=== PATIENT | female | born 1980 | race Caucasian/White ===

== ENCOUNTER 2022-11-07 04:33 | Emergency (ER) | payer MEDICAID ==
[~2022-11-07] VITALS: Ht 165.1 cm; Wt 89.8 kg
[2022-11-07 04:43] VITALS: BP 133/85
--- NOTE | 2022-11-07 04:45 | NUR ---
PT BIBA BLS. TAKEN TO BED 5 Addendum: 11/07/22 at 0450 by ISAI PT BIBA ALS
--- NOTE | 2022-11-07 04:46 | NUR ---
Dr. Membreno examining patient.
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
[2022-11-07] MEDS ORDERED: LIDOCAINE 5% 1 EA PATCH TP STA (05:04)
[2022-11-07] MEDS ORDERED: CYCLOBENZAPRINE 10 MG TAB PO ONE (05:05)
[2022-11-07] MEDS ORDERED: KETOROLAC 30 MG/ML VIAL IM ONE (05:05)
--- NOTE | 2022-11-07 05:38 | NUR ---
PT RETURN FROM RADIOLOGY
[2022-11-07] MEDS ORDERED: IBUP-1842 PO (06:13)
[2022-11-07] MEDS ORDERED: CYCL-711 PO (06:13)
--- NOTE | 2022-11-07 06:26 | NUR ---
Patient discharged with v/s stable. Written and verbal after care instructions given and explained. Patient alert, oriented and verbalized understanding of instructions. All questions addressed prior to discharge. ID band removed. Patient advised to follow up with PMD. Rx Flexeril and Motrin sent to preferred pharmacy. Patient educated on indication of medication including possible reaction and side effects. Opportunity to ask questions provided and answered.
[2022-11-07 06:27] VITALS: BP 123/79
== END 2022-11-07 06:26 | disposition home or self-care (01) ==
LOC: MED 04:33
DX: S16.1XXA Strain of muscle, fascia and tendon at neck level, initial encounter (principal); R07.89 Other chest pain; V43.52XA Car driver injured in collision with other type car in traffic accident, initial encounter; Y93.89 Activity, other specified; Y92.410 Unspecified street and highway as the place of occurrence of the external cause; Y99.8 Other external cause status
CPT/HCPCS: 71045; 72040; 81025; 96372; 99284; J1885